=== PATIENT | male | born 1935 | race Caucasian/White ===

== ENCOUNTER → 2018-06-26 | Outpatient (CLI) | payer OTHER | LOC: FIMAGING 11:02 | PROVIDERS: ATTEND Family Medicine | DX: M79.89 Other specified soft tissue disorders (principal); I11.9 Hypertensive heart disease without heart failure; I43 Cardiomyopathy in diseases classified elsewhere ==

== ENCOUNTER 2018-07-02 14:18 | Emergency (ER) | payer OTHER ==
[2018-07-02 15:32] LABS: PLATELET COUNT 214 10^3/uL (150-400)
--- NOTE | 2018-07-02 15:34 | EDPHY ---
H & P Stated Complaint: COUGH/CHOKED/HYPERTENSION/DR STOPPED LASIX 6 DAYS AGO Time Seen by Provider: 07/02/18 14:50 HPI/ROS: CHIEF COMPLAINT: Choking, coughing, spitting HISTORY OF PRESENT ILLNESS: This is an 83-year-old male with history of coronary artery disease and peripheral edema the who presents with his family. History is somewhat vague and inconsistent. Patient himself states that he was drinking a green smoothie the when he felt like it was stuck in his throat. He continued with the clearing his throat, and intermittent spitting for several hours. Family reports that the patient seemed "out of it" this morning and looked like he was having some shortness of breath. He asked to have something to drink and was given a green smoothie. After that he continued to have retching, coughing, complaints of pain in his upper chest, for the next several hours. He was initially seen in Urgent Care but was noted to be hypertensive and asked to come to the emergency department. Currently the patient is resting comfortably. He states that he has no chest pain, throat pain, or problems swallowing. Patient denies any recent upper respiratory infection symptoms, recent cough or cold, denies vomiting or diarrhea. Denies chest pain or lightheadedness or shortness of breath. REVIEW OF SYSTEMS: Patient developed a significant rash 3 weeks ago. Initially thought to be due to oxycodone, now thought to be due possibly to Lasix. He has been taken off of his Lasix 1 week ago. Also has left lower extremity pitting edema, had ultrasound rule out DVT recently which was negative. PAST MEDICAL HISTORY: Coronary artery disease, peripheral edema. No history of DVT or PE. SOCIAL HISTORY: Lives with his daughter. Nonsmoker. VITAL SIGNS Reviewed by me. GENERAL: Well-developed, well-nourished, resting comfortably in no respiratory distress. No coughing, no difficulty swallowing at the time my exam. HEENT: Atraumatic. Eyes: No icterus, no injection. Mouth: moist mucous membranes. No erythema or lesions. Neck: supple with no adenopathy. LUNGS: Diminished breath sounds throughout, no wheezes, rhonchi or rales. CARDIAC: Regular rate and rhythm, no rubs, murmurs or gallops. ABDOMEN: Soft, nontender, nondistended, bowel sounds normal. BACK: No CVA tenderness. EXTREMITIES: No trauma. 1+ pitting edema on the left lower extremity. Range of motion is normal throughout. NEURO: Alert and oriented, grossly nonfocal. SKIN: Warm and dry, macular papular rash throughout the trunk. PSYCHIATRIC: Normal mentation, no agitation. - Personal History Current Tetanus Diphtheria and Acellular Pertussis (TDAP): Yes - Medical/Surgical History Hx Asthma: No Hx Chronic Respiratory Disease: No Hx Diabetes: No Hx Cardiac Disease: Yes Hx Renal Disease: No Hx Cirrhosis: No Hx Alcoholism: Yes Hx HIV/AIDS: No Hx Splenectomy or Spleen Trauma: No Other PMH: htn, dislipidemia, prostate ca, tia, cad w/ stents [id number] stenosis , w/ sx, lt meniscus repair - Social History Smoking Status: Never smoked Constitutional: Initial Vital Signs Temperature (C) 36.8 C 07/02/18 14:24 Heart Rate 73 07/02/18 14:24 Respiratory Rate 18 07/02/18 14:24 Blood Pressure 202/106 H 07/02/18 14:24 O2 Sat (%) 94 07/02/18 14:24 O2 Delivery Mode Room Air,Transtracheal Allergies/Adverse Reactions: No Known Allergies Allergy (Verified 07/02/18 14:23) Home Medications: Medication Instructions Recorded Cholecalciferol (Vitamin D3) 10,000 unit PO DAILY 10/24/13 [Vitamin D3] Herbals/Supplements -Info Only 1 ea PO DAILY 10/24/13 Multivitamins [Multivitamin (*)] 1 each PO DAILY 10/24/13 Nitroglycerin [Nitrostat 0.4 mg 0.4 mg SL PRN PRN 10/24/13 (*)] Ubidecarenone [Co Q-10] 300 mg PO DAILY 10/24/13 Aspirin EC [Aspirin EC 325 mg (*)] 325 mg PO DAILY #0 tab 10/25/13 Losartan Potassium [Cozaar 50 mg 100 mg PO DAILY #0 tab 10/25/13 (*)] Metoprolol Tartrate [Lopressor 50 50 mg PO BID #0 tab 10/25/13 mg (*)] Prasugrel HCl [Effient 10mg (*)] 10 mg PO DAILY #30 tab 10/25/13 Prednisone 07/02/18 Medical Decision Making - Diagnostics EKG Interpretation: 12-LEAD EKG: Please see the full report in [facility]. My interpretation: Sinus rhythm, LVH, nonischemic. No change from previous Imaging Results: Imaging Impressions Chest X-Ray 07/02/18 15:20 Impression: Stable negative chest. Chest/Thorax CTA 07/02/18 15:55 Impression: No evidence for pulmonary embolic disease. 2. Coronary artery and other scattered atherosclerotic disease. Results discussed with Dr. Mendieta at 16:48 PM. General information for patients regarding this examination can be found at [email or web address]. If you have questions or comments about this report, please contact me at (hospital) or [phone] (cell). ED Course/Re-evaluation: 83-year-old male presenting with an episode today of choking on a smoothie. Family is concerned that he looked poorly prior to this and seemed to maybe be short of breath or confused. On evaluation here the patient looks well. He describes at pressure and tightness the base of his neck which has resolved. EKG demonstrates LVH, there are some repolarization abnormalities which are same from his old EKG of 2013. Patient's troponin is negative. Labs are unremarkable with the exception of a D-dimer which is elevated 1.28. Patient has been taken off of his Lasix recently. - Data Points Laboratory Results: Laboratory Results 07/02/18 15:04 07/02/18 15:04 07/02/18 07/02/18 07/02/18 15:05 15:04 15:04 WBC RBC Hgb Hct MCV MCH MCHC RDW Plt Count MPV Neut % (Auto) Lymph % (Auto) Freestone % (Auto) Eos % (Auto) Baso % (Auto) Nucleat RBC Rel Count Absolute Neuts (auto) Absolute Lymphs (auto) Absolute Monos (auto) Absolute Eos (auto) Absolute Basos (auto) Absolute Nucleated RBC Immature Gran % Immature Gran # D-Dimer 1.28 ug/mLFEU H ug/mLFEU (0.00-0.50) Sodium 135 mEq/L mEq/L (135-145) Potassium 4.4 mEq/L mEq/L (3.5-5.2) Chloride 105 mEq/L mEq/L (97-110) Carbon Dioxide 24 mEq/l mEq/l (22-31) Anion Gap 6 mEq/L mEq/L (6-14) BUN 17 mg/dL mg/dL (7-23) Creatinine 0.9 mg/dL mg/dL (0.7-1.3) Estimated GFR > 60 Glucose 102 mg/dL H mg/dL (70-100) Calcium 9.3 mg/dL mg/dL (8.5-10.4) Total Bilirubin 0.5 mg/dL mg/dL (0.1-1.4) Conjugated Bilirubin 0.3 mg/dL mg/dL (0.0-0.5) Unconjugated Bilirubin 0.2 mg/dL mg/dL (0.0-1.1) AST 30 IU/L IU/L (17-59) ALT 33 IU/L IU/L (21-72) Alkaline Phosphatase 68 IU/L IU/L (38-126) POC Troponin I 0.01 ng/mL ng/mL (0.00-0.08) NT-Pro-B Natriuret Pep 1010 pg/mL H pg/mL (0-450) Total Protein 7.1 g/dL g/dL (6.3-8.2) Albumin 4.4 g/dL g/dL (3.5-5.0) Lipase 62 IU/L IU/L (23-300) 07/02/18 15:04 WBC 8.29 10^3/uL 10^3/uL (3.80-9.50) RBC 4.34 10^6/uL L 10^6/uL (4.40-6.38) Hgb 14.6 g/dL g/dL (13.7-17.5) Hct 42.5 % % (40.0-51.0) MCV 97.9 fL fL (81.5-99.8) MCH 33.6 pg pg (27.9-34.1) MCHC 34.4 g/dL g/dL (32.4-36.7) RDW 12.1 % % (11.5-15.2) Plt Count 214 10^3/uL 10^3/uL (150-400) MPV 10.6 fL fL (8.7-11.7) Neut % (Auto) 86.7 % H % (39.3-74.2) Lymph % (Auto) 9.0 % L % (15.0-45.0) Freestone % (Auto) 3.5 % L % (4.5-13.0) Eos % (Auto) 0.2 % L % (0.6-7.6) Baso % (Auto) 0.2 % L % (0.3-1.7) Nucleat RBC Rel Count 0.0 % % (0.0-0.2) Absolute Neuts (auto) 7.18 10^3/uL H 10^3/uL (1.70-6.50) Absolute Lymphs (auto) 0.75 10^3/uL L 10^3/uL (1.00-3.00) Absolute Monos (auto) 0.29 10^3/uL L 10^3/uL (0.30-0.80) Absolute Eos (auto) 0.02 10^3/uL L 10^3/uL (0.03-0.40) Absolute Basos (auto) 0.02 10^3/uL 10^3/uL (0.02-0.10) Absolute Nucleated RBC 0.00 10^3/uL 10^3/uL (0-0.01) Immature Gran % 0.4 % % (0.0-1.1) Immature Gran # 0.03 10^3/uL 10^3/uL (0.00-0.10) D-Dimer Sodium Potassium Chloride Carbon Dioxide Anion Gap BUN Creatinine Estimated GFR Glucose Calcium Total Bilirubin Conjugated Bilirubin Unconjugated Bilirubin AST ALT Alkaline Phosphatase POC Troponin I NT-Pro-B Natriuret Pep Total Protein Albumin Lipase Medications Given: Discontinued Medications Diphenhydramine HCl (Benadryl Injection) 25 mg IVP EDNOW ONE Stop: 07/02/18 16:49 Last Admin: 07/02/18 16:51 Dose: 25 mg Point of Care Test Results: Chemistry 07/02/18 15:05 POC Troponin I 0.01 ng/mL ng/mL (0.00-0.08) Departure - Departure Disposition: Home, Routine, Self-Care Clinical Impression: Esophageal spasm Condition: Good Instructions: Esophageal Spasm (ED), Gastroesophageal Reflux Disease (ED) Additional Instructions: There is no evidence of an acute heart attack or blood clot in your lung or pneumonia on your evaluation the emergency department. There is some evidence that you may have a bit of reflux. This could be causing an esophageal spasm whenever you try to eat or drink. I suggest that you obtain an [id number] course of omeprazole. Please take this as directed. You may also try taking Maalox or Mylanta to help coat the esophagus prior to eating. Please follow up with primary care physician early next week for re-evaluation. Referrals: Danelle Antunez MD [Primary Care Provider] - As per Instructions
--- NOTE | 2018-07-02 15:58 | CPEKG ---
Test Reason : OPEN Blood Pressure : / mmHG Vent. Rate : 074 BPM Atrial Rate : 074 BPM P-R Int : 159 ms QRS Dur : 101 ms QT Int : 392 ms P-R-T Axes : 015 006 077 degrees QTc Int : 435 ms Sinus rhythm Atrial premature complex Probable left atrial enlargement LVH with secondary repolarization abnormality Anterior ST elevation, probably due to LVH Confirmed by Janelle Mendieta ([id number]) on 07/02/2018 3:57:31 PM Referred By: Confirmed By:Janelle Mendieta
[2018-07-02] MEDS ORDERED: IOPAMIDOL (ISOVUE 370) 100 ML BTL IV ONE (15:59)
[2018-07-02 16:58] VITALS: BP 184/68
== END 2018-07-02 17:04 | disposition home or self-care (01) ==
DX: K22.4 Dyskinesia of esophagus (principal); R60.9 Edema, unspecified; I25.10 Atherosclerotic heart disease of native coronary artery without angina pectoris; I10 Essential (primary) hypertension; E78.5 Hyperlipidemia, unspecified
CPT/HCPCS: 71046; 71275; 93005; 96374; 99285; J1200; Q9967; 84484-ER